=== PATIENT | male | born 1985 | race Caucasian/White ===

== ENCOUNTER 2017-01-06 09:50 | Emergency (ER) | payer OTHER ==
[~2017-01-06 09:50] MED LIST: NO MEDICATIONS
[2017-01-06 10:37] LABS: URINE SOURCE CLEAN CATCH
[2017-01-06 10:49] LABS: URINE APPEARANCE CLEAR; URINE BLOOD NEG (NEG); URINE COLOR DK YELLOW; URINE GLUCOSE NEG (NEG); URINE KETONE TRACE (NEG); URINE LEUKOCYTE ESTERASE TRACE (NEG); URINE NITRATE NEG (NEG); URINE PROTEIN TRACE (NEG); URINE SPECIFIC GRAVITY 1.038 (1.003-1.035)
[2017-01-06 10:50] LABS: URINE BACTERIA AUWI NEG (NEGATIVE); URINE SQUAMOUS EPITHELIAL CELL NONE SEEN /[HPF]; UWBCS1 AUWI 0-2 (0-5)
[2017-01-06 10:54] LABS: CULTURE INDICATED? NO; URINE BILIRUBIN NEG (NEG)
== END 2017-01-06 11:05 | disposition home or self-care (01) ==
LOC: CED 09:50 → CFTX 10:17
PROVIDERS: Nurse Practitioner Family
DX: S39.012A Strain of muscle, fascia and tendon of lower back, initial encounter (principal); I10 Essential (primary) hypertension; M54.41 Lumbago with sciatica, right side; X58.XXXA Exposure to other specified factors, initial encounter; Y92.009 Unspecified place in unspecified non-institutional (private) residence as the place of occurrence of the external cause
CPT/HCPCS: 81003; 99283